=== PATIENT | male | born 1945 | race Caucasian/White ===

== ENCOUNTER 2017-01-24 15:43 | Emergency (ER) | payer MEDICARE ==
--- NOTE | 2017-01-24 16:57 | RAD ---
HISTORY: Cough COMPARISONS: April 13, 2014 VIEWS: 2: Frontal dual-energy and lateral views of the chest. FINDINGS: CARDIOMEDIASTINAL SILHOUETTE: The cardiomediastinal silhouette is normal. A prosthetic heart valve is noted CANDELARIA: The candelaria are normal. PLEURA: The costophrenic angles are sharp. No pleural abnormalities are noted. LUNG PARENCHYMA: The lungs are clear. ABDOMEN: The upper abdomen is clear. There is no subphrenic gas. BONES AND SOFT TISSUES: The patient is status post median sternotomy OTHER: None. IMPRESSION: NO ACTIVE CARDIOPULMONARY DISEASE.
[2017-01-24] MEDS ORDERED: cefTRIAXone VIAL(*) 1,000 MG VIAL IM ONE (17:23)
[2017-01-24] MEDS ORDERED: Lidocaine 1% MPF* 2 ML VIAL INJ ONE (17:26)
--- NOTE | 2017-01-24 17:35 | UC ---
Shortness of Breath HPI - HPI Summary HPI Summary: PT WITH A H/O ASTHMA AND CHRONIC BRONCHITIS. PER PT BASELINE O2 SAT IS ABOUT 90% . HAS COUGH AND NASAL CONGESTION. TODAY DEVELOPED PAIN IN HIS LEFT ABDOMEN WITH COUGHING SO CAME IN FOR EVAL. NO FEVER, N/V/D. - History of Current Complaint Chief Complaint: UCRespiratory Stated Complaint: COUGH Time Seen by Provider: 01/24/17 16:02 Hx Obtained From: Patient Onset/Duration: Gradual Onset, Lasting Days, Still Present Timing: Constant Current Severity: Moderate Dyspnea At: Rest Aggrevating Factors: Movement Alleviating Factors: Bronchodilators, Oxygen Associated Signs & Symptoms: Positive: Cough (Nonproductive), Wheezing, Nasal Congestion. Negative: Fever, Chills, Dizzy, Calf Pain/Swelling - Allergy/Home Medications Allergies/Adverse Reactions: Allergies Allergy/AdvReac Type Severity Reaction Status Date / Time NARCOTICS Allergy Severe Itching Uncoded 04/13/14 18:31 PMH/Surg Hx/FS Hx/Imm Hx Endocrine History: Diabetes Cardiovascular History: Cardiac Disease, Hypertension Respiratory History: COPD, Asthma - Surgical History Surgical History: Yes Surgery Procedure, Year, and Place: AVR, CABG, CAROTID ENDARTERECTOMY, PTCA W/ STENTS - Family History Known Family History: Positive: Hypertension, Diabetes - Social History Alcohol Use: Weekly Alcohol Amount: 1 BEER Substance Use Type: None Smoking Status (MU): Never Smoked Tobacco Review of Systems Constitutional: Negative ENT: Nasal Discharge Respiratory: Shortness Of Breath, Cough Cardiovascular: Negative Gastrointestinal: Abdominal Pain All Other Systems Reviewed And Are Negative: Yes Physical Exam Triage Information Reviewed: Yes Appearance: No Pain Distress, Well-Nourished, Obese Vital Signs: Initial Vital Signs Temp 98.5 F 01/24/17 15:55 Pulse 78 01/24/17 15:55 Resp 18 01/24/17 15:55 BP 146/84 01/24/17 15:55 Pulse Ox 87 01/24/17 15:55 Vital Signs Reviewed: Yes Eyes: Positive: Conjunctiva Clear ENT: Positive: Hearing grossly normal Neck: Positive: Supple Respiratory: Positive: Lungs clear, Normal breath sounds, Accessory muscle use Cardiovascular Exam: Normal Abdomen Description: Positive: Soft, Other: - TTP LEFT SIDE - NO REBOUND OR RIGIDITY. Negative: CVA Tenderness (R), CVA Tenderness (L) Neurological: Positive: Alert Psychological: Positive: Age Appropriate Behavior Skin: Negative: rashes Diagnostics - Radiology CXR Xray Interpretation: No Acute Changes Radiology Interpretation Completed By: Radiologist Shortness of Breath Dx - Course Course Of Treatment: RECOMMENDED TRANSFER TO ER BASED ON INCREASED WORK OF BREATHING AND LOW O2 SAT. PT DECLINES. DISCUSSED RISKS OF NOT GOING TO ER INCLUDING RESPIRATORY FAILURE AND . PT VERBALIZES UNDERSTANDING AND STILL CHOOSES TO GO AMA. STATES HE WILL GO TO THE ER TOMORROW IF HE IS NOT FEELING BETTER. - Differential Dx/Diagnosis Provider Diagnoses: BRONCHITIS WITH HYPOXIA Discharge - Discharge Plan Condition: Stable Disposition: AGAINST MEDICAL ADVICE Prescriptions: Azithromycin [Azithromycin 500 MG TAB] 500 mg PO DAILY #5 tab Referrals: Maycol Abel MD [Primary Care Provider] -
[2017-01-24 18:01] VITALS: BP 150/79
== END 2017-01-24 17:55 | disposition left against medical advice (07) ==
LOC: UCEAST 15:43
DX: J45.909 Unspecified asthma, uncomplicated (principal); Z53.20 Procedure and treatment not carried out because of patient's decision for unspecified reasons; R09.02 Hypoxemia; E11.9 Type 2 diabetes mellitus without complications; I10 Essential (primary) hypertension; I51.9 Heart disease, unspecified
CPT/HCPCS: 71020; 96372; 99213; G0463; J0696

== ENCOUNTER 2017-01-27 07:11 | Inpatient (IN) | payer MEDICARE ==
[2017-01-27] MEDS ORDERED: Albuterol/Ipratropium NEB.SOL* Albuterol 2.5 MG/Ipratropium 0.5 MG 3 ML INH ONE (07:45)
[2017-01-27] MEDS ORDERED: NS 0.9% 1000 ML* 1,000 ML IV SCH ×2 (07:45→13:00)
[2017-01-27 07:59] LABS: Hematocrit 49 % (42-52); Hemoglobin 16.1 g/dl (14.0-18.0); Mean Corpuscular HGB Conc 33 g/dl (31-36); Mean Corpuscular Hemoglobin 30 pg (27-31); Mean Corpuscular Volume 91 fL (80-94); Mean Platelet Volume 8 um3 (7.4-10.4); Red Blood Count 5.38 10^6/ul (4.0-5.4); Red Cell Distribution Width 14 % (10.5-15); White Blood Count 5.4 10^3/ul (3.5-10.8)
[2017-01-27 08:01] LABS: Urine Bilirubin Negative (Negative); Urine Glucose 1+(50 mg/dL) (Negative); Urine Nitrite Negative (Negative)
[2017-01-27 08:11] LABS: Albumin 3.9 g/dL (3.2-5.2); BUN/Creatinine Ratio 16.1 (8-20); C Reactive Protein 13.08 mg/L (< 5.00); Calcium 8.7 mg/dL (8.6-10.3); EGFR African American 65.9 (>60); EGFR Non-African American 51.2 (>60); Globulin 3.3 g/dL (2-4); Magnesium 1.8 mg/dL (1.9-2.7); Potassium 3.6 mmol/L (3.5-5.0); Total Bilirubin 0.4 mg/dL (0.2-1.0); Total Protein 7.2 g/dL (6.4-8.9)
[2017-01-27 08:12] LABS: Troponin I 0.01 ng/mL (<0.04)
[2017-01-27 08:23] LABS: TSH (Thyroid Stimulating Horm) 2.53 mcIU/mL (0.34-5.60)
[2017-01-27] MEDS ORDERED: Levofloxacin 750 MG IVPREMIX(* 750 MG/150 ML BAG IVPB ONE (09:23)
[2017-01-27] MEDS ORDERED: methylPREDNISolone 125 MG* 2 ML VIAL IV ONE (09:24)
--- NOTE | 2017-01-27 09:31 | RAD ---
Indication: Left lower chest pain. Single frontal view of the chest performed at 0820 hours was reviewed. Comparison is made with previous exam dated January 24, 2017. Cardiomegaly is noted. Likely bibasilar atelectasis is noted. Overall no changes noted since previous exam. IMPRESSION: NO ACTIVE CARDIOPULMONARY DISEASE IS NOTED. LEFT BASILAR ATELECTASIS IS LIKELY PRESENT.
[2017-01-27] MEDS ORDERED: Magnesium Sulfate 2 GM IV* 2 GM/50 ML BAG IVPB ONE (09:38)
[2017-01-27] MEDS ORDERED: Dextrose 50% Syringe 50 ML* 25 GM/50 ML SYRINGE IV PUSH PRN (13:01)
[2017-01-27] MEDS ORDERED: Acetaminophen TAB* 325 MG PO PRN (13:04)
[2017-01-27] MEDS ORDERED: Ondansetron INJ* 2 MG/ML VIAL IV PRN (13:04)
[2017-01-27] MEDS ORDERED: Albuterol HFA INHALER* 8 gm MDI INH PRN (13:06)
[2017-01-27] MEDS: guaiFENesin ER TAB 600 MG PO SCH ×2 (13:08→20:56)
[2017-01-27] MEDS: Heparin VIAL(*) 5000 UNITS/ML VIAL (FIVE THOUSAND) SUBCUT SCH ×2 (13:42→20:56)
[2017-01-27] MEDS ORDERED: ZOSYN 3.375 GM x ONE DOSE over 30 miuntes IVPB ×2 (14:00)
[2017-01-27] MEDS ORDERED: Iodixanol* (CONTRAST) 320 MG/ML 100 ML SDV IV SCH (14:09)
--- NOTE | 2017-01-27 16:38 | RAD ---
Indication: Left lower quadrant pain, fever. Contrast: Administered 133.8 ml of VISAPAQUE 320 mgi/ml CT of the abdomen and pelvis was performed after oral and IV contrast administration. Coronal and sagittal reconstructed images were obtained. The lung bases demonstrate some dependent changes with some scarring in the lingula. The heart demonstrates no pericardial effusion. Liver is normal in size. There is a low density lesion in the anterior medial segment of the left lobe of liver likely representing a small cyst measuring up to 11 mm. No other focal lesions or intrahepatic ductal dilatation is noted. The gallbladder demonstrates no calcified gallstones. Common duct is not dilated. The pancreas demonstrates no mass or pancreatic ductal dilatation. The spleen is normal in size. No adrenal lesions are noted. The kidneys demonstrate symmetric nephrograms without evidence of hydronephrosis or masses. Atherosclerotic aorta is noted. Abdominal aortic aneurysm just inferior to the abdominal aorta is noted measuring 3.8 cm in length x 3.4 cm AP x 3.0 cm in greatest width with peripheral thrombus. Common iliac arteries are patent. Inferior vena cava is unremarkable. No retroperitoneal or pelvic lymphadenopathy is noted. CT of the pelvis demonstrates prostate to be unremarkable. No hernias are noted. There are no dilated loops of small small bowel. Urinary bladder is unremarkable. Diverticulosis without definite evidence of diverticulitis is noted. No free fluid is identified. Degenerative changes of the lumbar spine with grade 1 spondylolisthesis of L5 on S1 noted. IMPRESSION: Probable hepatic cyst. Infrarenal abdominal aortic aneurysm. This measures 3.4 cm in greatest AP dimension. Diverticulosis without definite evidence of diverticulitis.
[2017-01-27] MEDS: Insulin LISPRO* 1 UNITS UNIT SUBCUT SCH (17:10)
[2017-01-27] MEDS: Atorvastatin* 80 MG TAB PO SCH (17:10)
--- NOTE | 2017-01-27 18:31 | ED ---
Ladan Jones Rebecca, scribed for Harrison Harding MD on 01/27/17 at 0748 . HPI Chest Pain - HPI Summary HPI Summary: Pt is a 71 y/o M who presents to ED c/o CP. Pain began on Thursday (3 days ago) and has been intermittent since onset, worsening this morning at 0300. Pain is in the L anterior region without radiation. Pain is currently severe, ranked 8/ 10. Sx aggravated by deep breaths and movement, alleviated by nothing. Additionally c/o SOB, productive cough and L-sided abd pain described as "there is a lump in my belly but I think it is fluid." Denies fever. PMHx CHF for which he takes diuretic pills when he notices his edema is worsening. Pt was evaluated 3 days ago by [facility] during which he reports his O2 sat was 88 and that he was advised to come [place] [facility], which he refused. He had a Dx of Bronchitis for which the pt reports sx were improving until early this morning. - History of Current Complaint Chief Complaint: EDShortnessOfBreath Time Seen by Provider: 01/27/17 07:31 Hx Obtained From: Patient Onset/Duration: Started Days Ago - 3 days ago, Still Present Timing: Intermittent Current Severity: Severe Pain Intensity: 8 Pain Scale Used: 0-10 Numeric Chest Pain Location: Left Anterior Chest Pain Radiates: No Aggravating Factor(s): Movement, Deep Breaths Alleviating Factor(s): Nothing Associated Signs and Symptoms: Positive: Shortness of Breath, Productive Cough, Abdominal Pain - L-sided. Negative: Fever - Allergy/Home Medications Allergies/Adverse Reactions: Allergies Allergy/AdvReac Type Severity Reaction Status Date / Time NARCOTICS Allergy Severe Itching Uncoded 01/27/17 07:35 Home Medications: Home Medications Albuterol HFA INHALER* [Ventolin HFA Inhaler*] 2 puff INH Q6H PRN 01/27/17 [ History Confirmed 01/27/17] Atorvastatin* [Lipitor*] 80 mg PO 1700 01/27/17 [History Confirmed 01/27/17] Metformin ER (NF) [Glucophage ER 750 MG TAB (NF)] 1,500 mg PO BEDTIME 01/27/17 [ History Confirmed 01/27/17] Metformin ER (NF) [Glucophage ER 750 MG TAB (NF)] 750 mg PO DAILY 01/27/17 [ History Confirmed 01/27/17] Metoprolol Succinate [Toprol Xl] 100 mg PO DAILY 01/27/17 [History Confirmed 11/10] Omeprazole CAP* [Prilosec CAP* 20 MG] 20 mg PO DAILY 01/27/17 [History Confirmed 01/27/17] Spironolactone TAB* [Aldactone TAB*] 50 mg PO DAILY 01/27/17 [History Confirmed 01/27/17] Terazosin CAP* [Hytrin CAP*] 5 mg PO BEDTIME 01/27/17 [History Confirmed ] glipiZIDE TAB.XL* [Glucotrol XL*] 5 mg PO DAILY 01/27/17 [History Confirmed 11/10] PMH/Surg Hx/FS Hx/Imm Hx Endocrine/Hematology History: Reports: Hx Diabetes Cardiovascular History: Reports: Hx Congestive Heart Failure, Hx Hypertension, Other Cardiovascular Problems/Disorders - AORTIC VALVE REPLACEMENT- HX STROKE Respiratory History: Reports: Hx Asthma Neurological History: Reports: Hx CVA - Surgical History Surgery Procedure, Year, and Place: AVR, CABG, CAROTID ENDARTERECTOMY, PTCA W/ STENTS Infectious Disease History: No Infectious Disease History: Reports: Hx Shingles Denies: Traveled Outside the [place] in Last 30 Days - Family History Known Family History: Positive: Hypertension, Diabetes - Social History Alcohol Use: Weekly Alcohol Amount: 1 BEER Substance Use Type: Reports: None Smoking Status (MU): Never Smoked Tobacco Review of Systems Negative: Fever Positive: Chest Pain Positive: Shortness Of Breath, Cough - productive Positive: Abdominal Pain - L-sided All Other Systems Reviewed And Are Negative: Yes Physical Exam Triage Information Reviewed: Yes Vital Signs On Initial Exam: Initial Vitals Temp Pulse Resp BP Pulse Ox 97.8 F 78 17 171/93 90 01/27/17 07:12 01/27/17 07:12 01/27/17 07:12 01/27/17 07:12 01/27/17 07:12 Vital Signs Reviewed: Yes Appearance: Positive: Well-Appearing, Pain Distress - Mild Skin: Positive: Warm, Skin Color Reflects Adequate Perfusion, Dry Head/Face: Positive: Normal Head/Face Inspection Eyes: Positive: EOMI, PATRICK ENT: Positive: Normal ENT inspection Neck: Positive: Supple, Nontender Respiratory/Lung Sounds: Positive: Rales - In the bases, Wheezes - Bilaterally, Other - Mild repsiratory distress Cardiovascular: Positive: RRR Abdomen Description: Positive: Nontender, Soft Bowel Sounds: Positive: Present Musculoskeletal: Positive: Strength/ROM Intact, Other - Bilateral pedal edema Neurological: Positive: Normal, Sensory/Motor Intact, Alert, Oriented to Person Place, Time Psychiatric: Positive: Affect/Mood Appropriate - Lena Coma Scale Coma Scale Total: 15 Diagnostics - Vital Signs Vital Signs Temp Pulse Resp BP Pulse Ox 01/27/17 07:30 74 16 138/78 88 01/27/17 07:24 76 20 163/82 87 01/27/17 07:21 76 18 89 01/27/17 07:12 97.8 F 78 17 171/93 90 - Laboratory Lab Results: Lab Results 01/27/17 01/27/17 01/27/17 Range/Units 07:20 07:20 07:20 WBC 5.4 (3.5-10.8) 10^3/ul RBC 5.38 (4.0-5.4) 10^6/ul Hgb 16.1 (14.0-18.0) g/dl Hct 49 (42-52) % MCV 91 (80-94) fL MCH 30 (27-31) pg MCHC 33 (31-36) g/dl RDW 14 (10.5-15) % Plt Count 260 (150-450) 10^3/ul MPV 8 (7.4-10.4) um3 Neut % (Auto) 67.5 (38-83) % Lymph % (Auto) 16.8 L (25-47) % Mcminn % (Auto) 10.2 H (1-9) % Eos % (Auto) 4.7 (0-6) % Baso % (Auto) 0.8 (0-2) % Absolute Neuts (auto) 3.7 (1.5-7.7) 10^3/ul Absolute Lymphs (auto) 0.9 L (1.0-4.8) 10^3/ul Absolute Monos (auto) 0.6 (0-0.8) 10^3/ul Absolute Eos (auto) 0.3 (0-0.6) 10^3/ul Absolute Basos (auto) 0 (0-0.2) 10^3/ul Absolute Nucleated RBC 0.02 10^3/ul Nucleated RBC % 0.3 INR (Anticoag Therapy) 0.84 L (0.89-1.11) APTT 31.8 (26.0-36.3) seconds D-Dimer, Quantitative < 200 (Less Than 230) ng/mL Sodium (133-145) mmol/L Potassium (3.5-5.0) mmol/L Chloride (101-111) mmol/L Carbon Dioxide (22-32) mmol/L Anion Gap (2-11) mmol/L BUN (6-24) mg/dL Creatinine (0.67-1.17) mg/dL Est GFR ( Amer) (>60) Est GFR (Non-Af Amer) (>60) BUN/Creatinine Ratio (8-20) Glucose (70-100) mg/dL Hemoglobin A1c (Less than 6.0) % Lactic Acid (0.5-2.0) mmol/L Calcium (8.6-10.3) mg/dL Magnesium (1.9-2.7) mg/dL Total Bilirubin (0.2-1.0) mg/dL AST (13-39) U/L ALT (7-52) U/L Alkaline Phosphatase (34-104) U/L Total Creatine Kinase (10-223) U/L CK-MB (CK-2) (0.6-6.3) ng/mL Troponin I (<0.04) ng/mL C-Reactive Protein (< 5.00) mg/L B-Natriuretic Peptide ( - 100) pg/mL Total Protein (6.4-8.9) g/dL Albumin (3.2-5.2) g/dL Globulin (2-4) g/dL Albumin/Globulin Ratio (1-3) Lipase (11.0-82.0) U/L TSH (0.34-5.60) mcIU/mL Urine Color Colorless Urine Appearance Clear Urine pH 5.0 (5-9) Ur Specific [place] 1.006 L (1.010-1.030) Urine Protein Negative (Negative) Urine Ketones Negative (Negative) Urine Blood Negative (Negative) Urine Nitrate Negative (Negative) Urine Bilirubin Negative (Negative) Urine Urobilinogen Negative (Negative) Ur Leukocyte Esterase Negative (Negative) Urine Glucose 1+(50 mg/dl) H (Negative) 01/27/17 01/27/17 01/27/17 Range/Units 07:20 07:20 07:20 WBC (3.5-10.8) 10^3/ul RBC (4.0-5.4) 10^6/ul Hgb (14.0-18.0) g/dl Hct (42-52) % MCV (80-94) fL MCH (27-31) pg MCHC (31-36) g/dl RDW (10.5-15) % Plt Count (150-450) 10^3/ul MPV (7.4-10.4) um3 Neut % (Auto) (38-83) % Lymph % (Auto) (25-47) % Mcminn % (Auto) (1-9) % Eos % (Auto) (0-6) % Baso % (Auto) (0-2) % Absolute Neuts (auto) (1.5-7.7) 10^3/ul Absolute Lymphs (auto) (1.0-4.8) 10^3/ul Absolute Monos (auto) (0-0.8) 10^3/ul Absolute Eos (auto) (0-0.6) 10^3/ul Absolute Basos (auto) (0-0.2) 10^3/ul Absolute Nucleated RBC 10^3/ul Nucleated RBC % INR (Anticoag Therapy) (0.89-1.11) APTT (26.0-36.3) seconds D-Dimer, Quantitative (Less Than 230) ng/mL Sodium 137 (133-145) mmol/L Potassium 3.6 (3.5-5.0) mmol/L Chloride 99 L (101-111) mmol/L Carbon Dioxide 34 H (22-32) mmol/L Anion Gap 4 (2-11) mmol/L BUN 22 (6-24) mg/dL Creatinine 1.37 H (0.67-1.17) mg/dL Est GFR ( Amer) 65.9 (>60) Est GFR (Non-Af Amer) 51.2 (>60) BUN/Creatinine Ratio 16.1 (8-20) Glucose 237 H (70-100) mg/dL Hemoglobin A1c (Less than 6.0) % Lactic Acid 0.8 (0.5-2.0) mmol/L Calcium 8.7 (8.6-10.3) mg/dL Magnesium 1.8 L (1.9-2.7) mg/dL Total Bilirubin 0.40 (0.2-1.0) mg/dL AST 21 (13-39) U/L ALT 17 (7-52) U/L Alkaline Phosphatase 117 H (34-104) U/L Total Creatine Kinase 187 (10-223) U/L CK-MB (CK-2) 3.8 (0.6-6.3) ng/mL Troponin I 0.01 (<0.04) ng/mL C-Reactive Protein 13.08 H (< 5.00) mg/L B-Natriuretic Peptide 39 ( - 100) pg/mL Total Protein 7.2 (6.4-8.9) g/dL Albumin 3.9 (3.2-5.2) g/dL Globulin 3.3 (2-4) g/dL Albumin/Globulin Ratio 1.2 (1-3) Lipase 36 (11.0-82.0) U/L TSH 2.53 (0.34-5.60) mcIU/mL Urine Color Urine Appearance Urine pH (5-9) Ur Specific [place] (1.010-1.030) Urine Protein (Negative) Urine Ketones (Negative) Urine Blood (Negative) Urine Nitrate (Negative) Urine Bilirubin (Negative) Urine Urobilinogen (Negative) Ur Leukocyte Esterase (Negative) Urine Glucose (Negative) 01/27/17 Range/Units 07:20 WBC (3.5-10.8) 10^3/ul RBC (4.0-5.4) 10^6/ul Hgb (14.0-18.0) g/dl Hct (42-52) % MCV (80-94) fL MCH (27-31) pg MCHC (31-36) g/dl RDW (10.5-15) % Plt Count (150-450) 10^3/ul MPV (7.4-10.4) um3 Neut % (Auto) (38-83) % Lymph % (Auto) (25-47) % Mcminn % (Auto) (1-9) % Eos % (Auto) (0-6) % Baso % (Auto) (0-2) % Absolute Neuts (auto) (1.5-7.7) 10^3/ul Absolute Lymphs (auto) (1.0-4.8) 10^3/ul Absolute Monos (auto) (0-0.8) 10^3/ul Absolute Eos (auto) (0-0.6) 10^3/ul Absolute Basos (auto) (0-0.2) 10^3/ul Absolute Nucleated RBC 10^3/ul Nucleated RBC % INR (Anticoag Therapy) (0.89-1.11) APTT (26.0-36.3) seconds D-Dimer, Quantitative (Less Than 230) ng/mL Sodium (133-145) mmol/L Potassium (3.5-5.0) mmol/L Chloride (101-111) mmol/L Carbon Dioxide (22-32) mmol/L Anion Gap (2-11) mmol/L BUN (6-24) mg/dL Creatinine (0.67-1.17) mg/dL Est GFR ( Amer) (>60) Est GFR (Non-Af Amer) (>60) BUN/Creatinine Ratio (8-20) Glucose (70-100) mg/dL Hemoglobin A1c 7.8 H (Less than 6.0) % Lactic Acid (0.5-2.0) mmol/L Calcium (8.6-10.3) mg/dL Magnesium (1.9-2.7) mg/dL Total Bilirubin (0.2-1.0) mg/dL AST (13-39) U/L ALT (7-52) U/L Alkaline Phosphatase (34-104) U/L Total Creatine Kinase (10-223) U/L CK-MB (CK-2) (0.6-6.3) ng/mL Troponin I (<0.04) ng/mL C-Reactive Protein (< 5.00) mg/L B-Natriuretic Peptide ( - 100) pg/mL Total Protein (6.4-8.9) g/dL Albumin (3.2-5.2) g/dL Globulin (2-4) g/dL Albumin/Globulin Ratio (1-3) Lipase (11.0-82.0) U/L TSH (0.34-5.60) mcIU/mL Urine Color Urine Appearance Urine pH (5-9) Ur Specific [place] (1.010-1.030) Urine Protein (Negative) Urine Ketones (Negative) Urine Blood (Negative) Urine Nitrate (Negative) Urine Bilirubin (Negative) Urine Urobilinogen (Negative) Ur Leukocyte Esterase (Negative) Urine Glucose (Negative) Result Diagrams: 01/27/17 07:20 01/27/17 07:20 Lab Statement: Any lab studies that have been ordered have been reviewed, and results considered in the medical decision making process. - Radiology CXR Xray Interpretation: Positive (See Comments) - NO ACTIVE CARDIOPULMONARY DISEASE IS NOTED. LEFT BASILAR ATELECTASIS IS LIKELY PRESENT. Radiology Interpretation Completed By: Radiologist - EKG 0728 Cardiac Rate: NL - 77 bpm EKG Rhythm: Sinus Rhythm Ectopy: None EKG Interpretation: Borderline T abnormalities, inferior leads Re-Evaluation - Re-Evaluation First Eval Re-Evaluation Time: 09:25 Change: Improved Comment: Pt is doing slightly better. Discussed admission and Dx with the pt. Chest Pain Course/Dx - Course Assessment/Plan: Pt is a 71 y/o M who presents to ED c/o severe L anterior CP for 3 days, worse this morning at 0300. Sx aggravated by deep breaths and movement. Additionally c/o SOB, productive cough and L-sided abd pain described as "there is a lump in my belly but I think it is fluid." Denies fever. PMHx CHF for which he takes diuretic pills when necessary. Pt was evaluated 3 days ago by [facility] during which he reports his O2 sat was 88 and that he was advised to come [place] [facility], which he refused. He had a Dx of Bronchitis for which the pt reports sx were improving until early this morning. NO CRITICAL CARE TIME. ADMIT HOSPITALIST STABLE. - Diagnoses Provider Diagnoses: Chest pain, Pneumonia, Hypoxia - Provider Notifications Discussed Care Of Patient With: Jasper Padilla Time Discussed With Above Provider: 09:22 Instructed by Provider To: Other - Accepts pt for admission Discharge - Discharge Plan Condition: Stable Disposition: ADMITTED TO [facility] The documentation as recorded by the Ladan powers Rebecca accurately reflects the service I personally performed and the decisions made by me, Harrison Harding MD.
[2017-01-27] MEDS: Terazosin CAP* 5 MG PO SCH (20:56)
--- NOTE | 2017-01-27 21:35 | HP ---
CC: Maycol Abel MD * MEDICINE HISTORY AND PHYSICAL: DATE OF ADMISSION: 01/27/17 PROVIDER: Cheri Goldstein NP ATTENDING PHYSICIAN: Nain Padilla MD *(as dictated by Cheri Goldstein NP). PRIMARY CARE PROVIDER: Maycol Abel MD CHIEF COMPLAINT: Chest pain. HISTORY OF PRESENT ILLNESS: Mr. Perkins is a 71-year-old male, who presented to the ER with complaints of chest pain. The patient states that the pain began on Thursday but was first noted in the left lower abdomen approximately 3 days ago and then has been intermittent since then. He did present to the urgent care at that time and there was concern for perhaps an acute bronchitis. At that time, the patient was referred to the ER for further evaluation, which he declined. He was given a prescription for azithromycin x5 days, which he did take and states that it did help him. He started to feel better. Yesterday, he noted he was concerned that he was not on enough antibiotics. He states that he ate wings last evening, went to sleep and then woke up around 3 a.m. with worsening pain that now radiated up to his left anterior chest. The pain is aggravated by taking deep breath and with movement. He describes associated symptoms of worsening edema to his lower extremities. He reports not being able to sleep flat because of the pain, stating that the pain moved from his left abdomen and into to his left chest. He also reports last Thursday, he saw his PCP and shortly thereafter he had a sore throat that presented through Thursday, when he started to present with the abdominal and chest pain. He attributes all these symptoms to pneumonia, which he states "I get every year." The patient also describes a lump in his belly that he calls fluid. When asked about his medical history, the patient is very tangential and states a lot of times that he "doesn't believe what they say about these diseases." He states he has been told he has COPD, but does not believe it and reports having chronic bronchitis and asthma as well as yearly pneumonia. Of note, the patient does travel frequently between here and [place]. His is currently residing in [place], he came up here to get his car inspected before returning back to [place]. He has no primary care provider down in [place], but does have one here locally. In the ER, the patient's CBC was benign. He does have elevated monocytes as well as a mildly elevated creatinine, elevated glucose, magnesium of 1.8, and a CRP of 13. PAST MEDICAL HISTORY: 1. Suspected COPD, although the patient denies. He does report history of asthma and chronic bronchitis with a baseline O2 sat of 90%. 2. Type 2 diabetes. 3. Coronary artery disease. The patient states that he has had stents placed "many years ago." 4. History of aortic valve replacement. 5. History of CVA "around 2014" 6. History of carotid artery endarterectomy approximately 2 years ago. 7. CHF. 8. GERD. 9. Peripheral vascular disease. 10. Obstructive sleep apnea. The patient does not wear CPAP. 11. Hypertension. 12. Hyperlipidemia. HOME MEDICATIONS: 1. Lotrel 10/20 one capsule daily. 2. Spironolactone 50 mg daily. 3. Albuterol inhaler 2 puffs inhaled q.6 hours p.r.n. 4. Metformin 750 mg daily and 1500 mg at bedtime. 5. Omeprazole 20 mg daily. 6. Glipizide 5 mg daily. 7. Atorvastatin 80 mg at 1700. 8. Terazosin 5 mg at bedtime. 9. Toprol-XL 100 mg daily. ALLERGIES: No known drug allergies. FAMILY HISTORY: He reports heart disease in both his mother and father and a history of breast cancer in an aunt. SOCIAL HISTORY: The patient states he is a former smoker. He reports 1 bottle of beer that he drinks on most days. He denies any drug use. He is retired. 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 He is . His is currently in [place]. He does have a daughter here locally, who he names as his healthcare proxy at this time, her name is Lisa Perkins. REVIEW OF SYSTEMS: Constitutional: The patient denies any fevers, chills, changes in appetite. CV: He reports left-sided chest pain that is not radiating. He reports chronic lower extremity edema. He denies any palpitations, dizziness, syncopal episodes. Resp: He reports a non-productive cough and dyspnea. He does not utilize chronic O2. He denies any hemoptysis. GI: He reports constipation recently and a few episodes of diarrhea yesterday. He denies any nausea or vomiting, but does report left lower quadrant abdominal pain. : He denies any dysuria, but does state that he has urinary hesitancy and frequency, but denies hematuria. Neuro: He denies any focal weakness, sensory loss or changes to speech. ENT: He denies any new changes with vision, hearing or swallowing ability. Musculoskeletal: He denies any new joint pains or muscle pains. Skin: He reports chronic ulcerations to the bilateral lower extremities that have healed and history of peripheral vascular disease. Psych: He denies any anxiety or depression. PHYSICAL EXAMINATION GENERAL: Mr. Perkins is a 71-year-old male patient who is sitting up in his chair, in no acute distress. VITAL SIGNS: Temperature 97.8, heart rate 72, respiratory rate 20, blood pressure 132/67, and O2 saturation 92% on room air. HEENT: Head is atraumatic, normocephalic. Face is symmetrical. Pupils are equal, round, and reactive to light. Extraocular movements are intact. Oral mucosa appears moist. No oropharyngeal erythema. NECK: Supple. No lymphadenopathy appreciated. RESPIRATORY: Lungs are clear to auscultation. Breath sounds diminished in the bases, more on the left than the right. No wheezes appreciated. CARDIAC: S1, S2 heart sounds. Regular rate and rhythm. There is a slight systolic ejection murmur, best heard on the right upper sternal border. The patient has 2+ peripheral edema that is pitting, 2+ distal pulses. ABDOMEN: Obese, and soft. There is tenderness in the left lower quadrant with palpation. Bowel sounds present times all 4 quadrants. MUSCULOSKELETAL: There is no clubbing or cyanosis. The patient has full range of motion. 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 NEUROLOGIC: The patient moves all extremities. No focal deficits noted. Sensation is intact to light touch to the lower extremities. PSYCH: He is alert and oriented x3. The patient is tangential with a relatively poor insight, but otherwise cooperative with assessment and exam. LABORATORY DATA AND DIAGNOSTIC STUDIES: Chest x-ray shows no active cardiopulmonary disease. Left basal atelectasis is likely present. EKG shows sinus rhythm with some T-wave flattening in leads 2 and 3. No significant changes from previous EKG on record. Laboratory testing: CBC: WBC 5.4, hemoglobin 16.1, hematocrit 49, platelet count 260,000. D-dimer less than 200. CMP: Sodium 137, potassium 3.6, chloride 99, carbon dioxide 34, BUN 22, creatinine 1.37, glucose 237, lactic acid 0.8, magnesium 1.8, AST 21, ALT 17, alk phos 117, total CK 187, troponin 0.01, CRP 13.08, BNP 39, albumin 3.9, TSH 2.53. Urinalysis is negative for any nitrites or leukocyte esterase. ASSESSMENT AND PLAN: Mr. Perkins is a 71-year-old male who presents today with concern for chest pain and left lower abdominal pain. He is admitted under observation status. Plan is as follows: 1. Shortness of breath: Suspect a mild chronic obstructive pulmonary disease exacerbation. The patient was recently treated with azithromycin as an outpatient . His CXR indicates there may be a formulation of an infiltrate in the left lower lobe that is read as atelectasis. He is afebrile. His labs are benign and I do suspect that he may have some viral illness given his respiratory distress, but given the patient's initial presentation with respiratory distress with wheezing, which I do not now appreciate, we will continue him on antibiotics for suspected developing pneumonia as well as nebulizer treatments p.r.n. He is currently using 2 L of oxygen, which he does not use at home. We will try to wean this as soon as possible for the patient and continue to monitor. 2. Chest pain: The patient's pain is not radiating or reproducible. The patient's initial trop was negative, but the EKG shows no ischemic changes. The pain is not reproducible. We will continue to trend his troponins. He does have a history significant for heart disease; however, the patient's pain appears to be more consistent with a muscle pain or perhaps a radiating pain from an abdominal source than it does cardiac, as the patient can elicit the pain by moving in certain directions. He does not describe the pain as typical with activity or exertion, but rather if he bends over, it shoots up to his chest. Given that the patient reports eating wings last evening and lying flat and having this pain that may represent some kind of GI component. He does report a history of reflux and he currently takes omeprazole for this which we will continue. There is also concern for the patient's severe left abdominal pain that we will also evaluate while he is here. Certainly, if the pain continues or troponins elevate, we will pursue a cardiac evaluation. 3. Left lower quadrant abdominal pain: This may represent a diverticulitis, infection or some other inflammation of the bowel. Though the patient's lactic acid is normal, his CRP is only minimally elevated; however, he does have exquisite pain when his abdomen is lightly palpated within that region and apparently, the pain radiates up through his chest from time to time. I will check his CT of his abdomen to better evaluate his pain. I have switched the patient to Zosyn to cover any particular potential lung disease as well as concern for developing a diverticulitis. This can be narrowed down once the testing returns. 4. Elevated creatinine and acute kidney injury: The patient may have some acute- on-chronic process here. In fact, he may have an element of chronic renal dysfunction. We requested the records from the patient's PCP's office to better establish the patient's baseline, continue to trend and follow. 5. Type 2 diabetes: I will add an A1c. The patient's random glucose is 235 and I am not sure when he last ate and how accurate this is. We will hold his home metformin and glipizide and continue him on lispro sliding scale insulin. 6. History of coronary artery disease: Continue home statin. Continue beta- ama. 7. History of hypertension: Continue amlodipine, but hold the patient's benazepril portion of his Lotrel as he does have a mildly elevated creatinine. Continue to follow. 8. History of congestive heart failure: Continue spironolactone. The patient is on daily weights and I's and O's, he appears to be within his baseline, which he does state his baseline weight is 230 and here it is mentioned about 236. I do not appreciate any crackles. I do not feel the patient is fluid overloaded at this time, but we will continue to carefully monitor this. 9. History of gastroesophageal reflux disease: Continue omeprazole. 10. FEN. The patient is ordered consistent carbohydrate diet. 11. DVT prophylaxis. He is ordered subcu heparin. 12. Code status. He is a full code. TIME SPENT: Time spent on this admission was approximately 70 minutes, more than half that time was spent [id number] with the patient obtaining history and physical, performing the physical examination, and reviewing the plan of care. Plan of care was also reviewed with my attending, Dr. Padilla, who is in agreement. CHERI GOLDSTEIN NP [id number]/CPS #: [id number] KITTY
[2017-01-28] MEDS ORDERED: traMADol TAB* 50 MG PO PRN (00:12)
[2017-01-28 05:30] LABS: Hematocrit 47 % (42-52); Hemoglobin 15.4 g/dl (14.0-18.0); Mean Corpuscular HGB Conc 33 g/dl (31-36); Mean Corpuscular Hemoglobin 30 pg (27-31); Mean Corpuscular Volume 90 fL (80-94); Mean Platelet Volume 9 um3 (7.4-10.4); Red Blood Count 5.14 10^6/ul (4.0-5.4); Red Cell Distribution Width 14 % (10.5-15); White Blood Count 6.4 10^3/ul (3.5-10.8)
[2017-01-28 05:35] LABS: BUN/Creatinine Ratio 18.8 (8-20); Calcium 8.5 mg/dL (8.6-10.3); EGFR Non-African American 61.5 (>60); Potassium 4.1 mmol/L (3.5-5.0)
[2017-01-28] MEDS: Heparin VIAL(*) 5000 UNITS/ML VIAL (FIVE THOUSAND) SUBCUT SCH ×3 (06:13→21:03)
[2017-01-28] MEDS: Albuterol 2.5 MG/3 ML NEB.SOL* (0.083%) INH PRN ×2 (08:47→23:52)
[2017-01-28] MEDS: Insulin LISPRO* 1 UNITS UNIT SUBCUT SCH ×3 (10:23→18:02)
--- NOTE | 2017-01-28 10:23 | PN ---
Subjective Date of Service: 01/28/17 Interval History: C/O L lower rib pain, inhibits his coughing. Objective Active Medications: Albuterol (Ventolin 2.5 Mg/3 Ml Neb.Dayan*) 2.5 mg INH Q2H PRN PRN Reason: SOB/WHEEZING Last Admin: 01/28/17 08:47 Dose: 2.5 mg Albuterol (Ventolin Hfa Inhaler*) 2 puff INH Q6H PRN PRN Reason: WHEEZING Last Admin: 01/27/17 20:14 Dose: 2 puff Amlodipine Besylate (Norvasc Tab*) 10 mg PO DAILY [facility] Atorvastatin Calcium (Lipitor*) 80 mg PO 1700 [facility] Last Admin: 01/27/17 17:10 Dose: 80 mg Dextrose (D50w Syringe 50 Ml*) 12.5 gm IV PUSH .FOR FS < 60 - SS PRN PRN Reason: FS < 60 Glipizide (Glucotrol Xl*) 5 mg PO DAILY [facility] Guaifenesin (Mucinex*) 1,200 mg PO BID [facility] Last Admin: 01/27/17 20:56 Dose: 1,200 mg Heparin Sodium (Porcine) (Heparin Vial(*)) 5,000 units SUBCUT Q8HR [facility] Last Admin: 01/28/17 06:13 Dose: 5,000 units Piperacillin Sod/Tazobactam (Sod 3.375 gm/ Sodium Chloride) 100 mls @ 25 mls/ hr IVPB Q8H [facility] Last Admin: 01/28/17 02:14 Dose: 25 mls/hr Insulin Human Lispro (Humalog*) 0 units SUBCUT AC [facility] PRN Reason: Protocol Last Admin: 01/27/17 17:10 Dose: 12 unit Iodixanol (Visipaque* 320 (Contrast)) 134 ml IV ONCE [facility] Stop: 01/29/17 14:08 Last Admin: 01/27/17 15:58 Dose: 134 ml Metoprolol Succinate (Toprol Xl Tab*) 100 mg PO DAILY [facility] Omeprazole (Prilosec Cap*) 20 mg PO DAILY [facility] Ondansetron HCl (Zofran Inj*) 4 mg IV Q6H PRN PRN Reason: NAUSEA Spironolactone (Aldactone Tab*) 50 mg PO DAILY [facility] Terazosin HCl (Hytrin Cap*) 5 mg PO BEDTIME [facility] Last Admin: 01/27/17 20:56 Dose: 5 mg Tramadol HCl (Ultram*) 50 mg PO Q6H PRN PRN Reason: PAIN Vital Signs 01/27/17 01/27/17 01/27/17 10:20 20:13 20:24 Temperature 98.6 F 98.0 F Pulse Rate 72 77 77 Respiratory 20 18 20 Rate Blood Pressure 132/67 151/65 (mmHg) O2 Sat by Pulse 91 93 93 Oximetry 01/27/17 01/28/17 01/28/17 23:32 08:09 08:50 Temperature 97.5 F 97.6 F Pulse Rate 69 73 75 Respiratory 16 22 16 Rate Blood Pressure 154/75 173/83 (mmHg) O2 Sat by Pulse 91 89 93 Oximetry 01/28/17 08:51 Temperature Pulse Rate Respiratory Rate Blood Pressure (mmHg) O2 Sat by Pulse 93 Oximetry Oxygen Devices in Use Now: Nasal Cannula Appearance: Alert, in a chair. Somewhat angry, otherwise looks comfortable. Eyes: No Scleral Icterus Neck: NL Appearance and Movements; NL JVP, No Thyroid Enlargement, Masses Respiratory: Symmetrical Chest Expansion and Respiratory Effort, Clear to Auscultation, Clear to Percussion, - - marked tenderness L lower ribs Cardiovascular: NL Sounds; No Murmurs; No JVD, RRR, No Edema, - Abdominal: NL Sounds; No Tenderness; No Distention, No Hepatosplenomegaly, - - obese Extremities: No Edema, No Clubbing, Cyanosis, - Skin: No Rash or Ulcers, No Nodules or Sclerosis, - Neurological: Alert and Oriented x 3, NL Sensation Result Diagrams: 01/28/17 04:55 01/28/17 04:55 Additional Lab and Data: Lab Results 01/27/17 01/27/17 01/27/17 Range/Units 07:20 07:20 07:20 WBC 5.4 (3.5-10.8) 10^3/ul RBC 5.38 (4.0-5.4) 10^6/ul Hgb 16.1 (14.0-18.0) g/dl Hct 49 (42-52) % MCV 91 (80-94) fL MCH 30 (27-31) pg MCHC 33 (31-36) g/dl RDW 14 (10.5-15) % Plt Count 260 (150-450) 10^3/ul MPV 8 (7.4-10.4) um3 Neut % (Auto) 67.5 (38-83) % Lymph % (Auto) 16.8 L (25-47) % Butler % (Auto) 10.2 H (1-9) % Eos % (Auto) 4.7 (0-6) % Baso % (Auto) 0.8 (0-2) % Absolute Neuts (auto) 3.7 (1.5-7.7) 10^3/ul Absolute Lymphs (auto) 0.9 L (1.0-4.8) 10^3/ul Absolute Monos (auto) 0.6 (0-0.8) 10^3/ul Absolute Eos (auto) 0.3 (0-0.6) 10^3/ul Absolute Basos (auto) 0 (0-0.2) 10^3/ul Absolute Nucleated RBC 0.02 10^3/ul Nucleated RBC % 0.3 INR (Anticoag Therapy) 0.84 L (0.89-1.11) APTT 31.8 (26.0-36.3) seconds D-Dimer, Quantitative < 200 (Less Than 230) ng/mL Sodium (133-145) mmol/L Potassium (3.5-5.0) mmol/L Chloride (101-111) mmol/L Carbon Dioxide (22-32) mmol/L Anion Gap (2-11) mmol/L BUN (6-24) mg/dL Creatinine (0.67-1.17) mg/dL Est GFR ( Amer) (>60) Est GFR (Non-Af Amer) (>60) BUN/Creatinine Ratio (8-20) Glucose (70-100) mg/dL Hemoglobin A1c (Less than 6.0) % Lactic Acid (0.5-2.0) mmol/L Calcium (8.6-10.3) mg/dL Magnesium (1.9-2.7) mg/dL Total Bilirubin (0.2-1.0) mg/dL AST (13-39) U/L ALT (7-52) U/L Alkaline Phosphatase (34-104) U/L Total Creatine Kinase (10-223) U/L CK-MB (CK-2) (0.6-6.3) ng/mL Troponin I (<0.04) ng/mL C-Reactive Protein (< 5.00) mg/L B-Natriuretic Peptide ( - 100) pg/mL Total Protein (6.4-8.9) g/dL Albumin (3.2-5.2) g/dL Globulin (2-4) g/dL Albumin/Globulin Ratio (1-3) Lipase (11.0-82.0) U/L TSH (0.34-5.60) mcIU/mL Urine Color Colorless Urine Appearance Clear Urine pH 5.0 (5-9) Ur Specific Leland 1.006 L (1.010-1.030) Urine Protein Negative (Negative) Urine Ketones Negative (Negative) Urine Blood Negative (Negative) Urine Nitrate Negative (Negative) Urine Bilirubin Negative (Negative) Urine Urobilinogen Negative (Negative) Ur Leukocyte Esterase Negative (Negative) Urine Glucose 1+(50 mg/dl) H (Negative) 01/27/17 01/27/17 01/27/17 Range/Units 07:20 07:20 07:20 WBC (3.5-10.8) 10^3/ul RBC (4.0-5.4) 10^6/ul Hgb (14.0-18.0) g/dl Hct (42-52) % MCV (80-94) fL MCH (27-31) pg MCHC (31-36) g/dl RDW (10.5-15) % Plt Count (150-450) 10^3/ul MPV (7.4-10.4) um3 Neut % (Auto) (38-83) % Lymph % (Auto) (25-47) % Butler % (Auto) (1-9) % Eos % (Auto) (0-6) % Baso % (Auto) (0-2) % Absolute Neuts (auto) (1.5-7.7) 10^3/ul Absolute Lymphs (auto) (1.0-4.8) 10^3/ul Absolute Monos (auto) (0-0.8) 10^3/ul Absolute Eos (auto) (0-0.6) 10^3/ul Absolute Basos (auto) (0-0.2) 10^3/ul Absolute Nucleated RBC 10^3/ul Nucleated RBC % INR (Anticoag Therapy) (0.89-1.11) APTT (26.0-36.3) seconds D-Dimer, Quantitative (Less Than 230) ng/mL Sodium 137 (133-145) mmol/L Potassium 3.6 (3.5-5.0) mmol/L Chloride 99 L (101-111) mmol/L Carbon Dioxide 34 H (22-32) mmol/L Anion Gap 4 (2-11) mmol/L BUN 22 (6-24) mg/dL Creatinine 1.37 H (0.67-1.17) mg/dL Est GFR ( Amer) 65.9 (>60) Est GFR (Non-Af Amer) 51.2 (>60) BUN/Creatinine Ratio 16.1 (8-20) Glucose 237 H (70-100) mg/dL Hemoglobin A1c (Less than 6.0) % Lactic Acid 0.8 (0.5-2.0) mmol/L Calcium 8.7 (8.6-10.3) mg/dL Magnesium 1.8 L (1.9-2.7) mg/dL Total Bilirubin 0.40 (0.2-1.0) mg/dL AST 21 (13-39) U/L ALT 17 (7-52) U/L Alkaline Phosphatase 117 H (34-104) U/L Total Creatine Kinase 187 (10-223) U/L CK-MB (CK-2) 3.8 (0.6-6.3) ng/mL Troponin I 0.01 (<0.04) ng/mL C-Reactive Protein 13.08 H (< 5.00) mg/L B-Natriuretic Peptide 39 ( - 100) pg/mL Total Protein 7.2 (6.4-8.9) g/dL Albumin 3.9 (3.2-5.2) g/dL Globulin 3.3 (2-4) g/dL Albumin/Globulin Ratio 1.2 (1-3) Lipase 36 (11.0-82.0) U/L TSH 2.53 (0.34-5.60) mcIU/mL Urine Color Urine Appearance Urine pH (5-9) Ur Specific [place]eland (1.010-1.030) Urine Protein (Negative) Urine Ketones (Negative) Urine Blood (Negative) Urine Nitrate (Negative) Urine Bilirubin (Negative) Urine Urobilinogen (Negative) Ur Leukocyte Esterase (Negative) Urine Glucose (Negative) 01/27/17 Range/Units 07:20 WBC (3.5-10.8) 10^3/ul RBC (4.0-5.4) 10^6/ul Hgb (14.0-18.0) g/dl Hct (42-52) % MCV (80-94) fL MCH (27-31) pg MCHC (31-36) g/dl RDW (10.5-15) % Plt Count (150-450) 10^3/ul MPV (7.4-10.4) um3 Neut % (Auto) (38-83) % Lymph % (Auto) (25-47) % Butler % (Auto) (1-9) % Eos % (Auto) (0-6) % Baso % (Auto) (0-2) % Absolute Neuts (auto) (1.5-7.7) 10^3/ul Absolute Lymphs (auto) (1.0-4.8) 10^3/ul Absolute Monos (auto) (0-0.8) 10^3/ul Absolute Eos (auto) (0-0.6) 10^3/ul Absolute Basos (auto) (0-0.2) 10^3/ul Absolute Nucleated RBC 10^3/ul Nucleated RBC % INR (Anticoag Therapy) (0.89-1.11) APTT (26.0-36.3) seconds D-Dimer, Quantitative (Less Than 230) ng/mL Sodium (133-145) mmol/L Potassium (3.5-5.0) mmol/L Chloride (101-111) mmol/L Carbon Dioxide (22-32) mmol/L Anion Gap (2-11) mmol/L BUN (6-24) mg/dL Creatinine (0.67-1.17) mg/dL Est GFR ( Amer) (>60) Est GFR (Non-Af Amer) (>60) BUN/Creatinine Ratio (8-20) Glucose (70-100) mg/dL Hemoglobin A1c 7.8 H (Less than 6.0) % Lactic Acid (0.5-2.0) mmol/L Calcium (8.6-10.3) mg/dL Magnesium (1.9-2.7) mg/dL Total Bilirubin (0.2-1.0) mg/dL AST (13-39) U/L ALT (7-52) U/L Alkaline Phosphatase (34-104) U/L Total Creatine Kinase (10-223) U/L CK-MB (CK-2) (0.6-6.3) ng/mL Troponin I (<0.04) ng/mL C-Reactive Protein (< 5.00) mg/L B-Natriuretic Peptide ( - 100) pg/mL Total Protein (6.4-8.9) g/dL Albumin (3.2-5.2) g/dL Globulin (2-4) g/dL Albumin/Globulin Ratio (1-3) Lipase (11.0-82.0) U/L TSH (0.34-5.60) mcIU/mL Urine Color Urine Appearance Urine pH (5-9) Ur Specific Leland (1.010-1.030) Urine Protein (Negative) Urine Ketones (Negative) Urine Blood (Negative) Urine Nitrate (Negative) Urine Bilirubin (Negative) Urine Urobilinogen (Negative) Ur Leukocyte Esterase (Negative) Urine Glucose (Negative) Microbiology and Other Data: Microbiology 01/27/17 13:25 Legionella Urinary Antigen - Final Urine Negative Legionella Streptococcus pneumoniae Ag Screen - Final Negative S. pneumo Antigen Assess/Plan/Problems-Billing Assessment: - Patient Problems (1) COPD with exacerbation Current Visit: Yes Status: Acute Code(s): J44.1 - CHRONIC OBSTRUCTIVE PULMONARY DISEASE W (ACUTE) EXACERBATION SNOMED Code(s): 817700122 Comment: Possible rib fx exacerbating his SOB. Rib X-rays ordered. Continue levofloxacin. Failed outpt azithromycin. (2) CAD (coronary artery disease) Current Visit: Yes Status: Acute Code(s): I25.10 - ATHSCL HEART DISEASE OF [place] CORONARY ARTERY W/O ANG PCTRS SNOMED Code(s): 40248018 Comment: Hx cardiac stents many yrs ago. Continue ASA, statin, BB. (3) Diabetes Current Visit: Yes Status: Acute Code(s): E11.9 - TYPE 2 DIABETES MELLITUS WITHOUT COMPLICATIONS SNOMED Code(s): 62138438 Comment: Continue glipizide. Hold metformin. Note had IV contast 01/27. Lispro by SS. (4) HTN (hypertension) Current Visit: Yes Status: Acute Code(s): I10 - ESSENTIAL (PRIMARY) HYPERTENSION SNOMED Code(s): 71576636 Comment: Continue spironolactone, amlodipine, hold bnzepril. (5) GERD (gastroesophageal reflux disease) Current Visit: Yes Status: Acute Code(s): K21.9 - GASTRO-ESOPHAGEAL REFLUX DISEASE WITHOUT ESOPHAGITIS SNOMED Code(s): 041656561 Comment: Continue PPI. (6) SALLY (obstructive sleep apnea) Current Visit: Yes Status: Acute Code(s): G47.33 - OBSTRUCTIVE SLEEP APNEA ( ADULT) (PEDIATRIC) SNOMED Code(s): 16774413 Comment: Pt does not use CPAP at home.
[2017-01-28] MEDS: glipiZIDE TAB.XL* 5 MG PO SCH (10:25)
[2017-01-28] MEDS: Omeprazole CAP* 20 MG PO SCH (10:26)
[2017-01-28] MEDS: guaiFENesin ER TAB 600 MG PO SCH ×2 (10:27→21:03)
[2017-01-28] MEDS: amLODIPine TAB* 5 MG PO SCH (10:28)
[2017-01-28] MEDS: Spironolactone TAB* 25 MG PO SCH (10:29)
[2017-01-28] MEDS: Metoprolol Succinate XL TAB* 100 MG PO SCH (10:30)
--- NOTE | 2017-01-28 11:04 | RAD ---
HISTORY: Left lower rib pain COMPARISONS: CT dated January 27, 2017 VIEWS: 4, Frontal view of the chest with frontal and oblique views of the left hemithorax FINDINGS: The patient is status post median sternotomy. There is no displaced rib fracture or appreciable pneumothorax. IMPRESSION: NO DISPLACED RIB FRACTURE OR PNEUMOTHORAX.
[2017-01-28] MEDS: Acetaminophen TAB* 325 MG PO SCH ×3 (11:57→23:26)
[2017-01-28] MEDS: Aspirin Low Dose CHEW TAB* 81 MG PO SCH (11:57)
[2017-01-28] MEDS: oxyCODONE TAB* 5 MG TAB PO PRN ×2 (15:50→18:49)
[2017-01-28] MEDS: Atorvastatin* 80 MG TAB PO SCH (18:12)
[2017-01-28] MEDS: Terazosin CAP* 5 MG PO SCH (21:03)
[2017-01-29] MEDS: oxyCODONE TAB* 5 MG TAB PO PRN ×5 (00:13→22:26)
[2017-01-29] MEDS: Acetaminophen TAB* 325 MG PO SCH ×4 (05:23→22:26)
[2017-01-29] MEDS: Heparin VIAL(*) 5000 UNITS/ML VIAL (FIVE THOUSAND) SUBCUT SCH ×3 (05:23→22:27)
[2017-01-29] MEDS ORDERED: Magnesium CITRATE* 300 ML BTL PO ONE (07:32)
[2017-01-29] MEDS: amLODIPine TAB* 5 MG PO SCH (10:12)
[2017-01-29] MEDS: Aspirin Low Dose CHEW TAB* 81 MG PO SCH (10:13)
[2017-01-29] MEDS: Metoprolol Succinate XL TAB* 100 MG PO SCH (10:14)
[2017-01-29] MEDS: Spironolactone TAB* 25 MG PO SCH (10:14)
[2017-01-29] MEDS: glipiZIDE TAB.XL* 5 MG PO SCH (10:14)
[2017-01-29] MEDS: Omeprazole CAP* 20 MG PO SCH (10:15)
[2017-01-29] MEDS: guaiFENesin ER TAB 600 MG PO SCH ×2 (10:15→22:26)
[2017-01-29] MEDS: Polyethylene Glycol 3350* 17 GM PACKET PO SCH ×2 (10:17→22:27)
[2017-01-29] MEDS: Insulin LISPRO* 1 UNITS UNIT SUBCUT SCH ×3 (10:18→18:05)
--- NOTE | 2017-01-29 13:38 | PN ---
Subjective Date of Service: 01/29/17 Interval History: Pain better today. No new c/o. He states the pain has moved into his L chest. Objective Active Medications: Acetaminophen (Tylenol Tab*) 650 mg PO Q6H [facility] Last Admin: 01/29/17 05:23 Dose: 650 mg Albuterol (Ventolin 2.5 Mg/3 Ml Neb.Dayan*) 2.5 mg INH Q2H PRN PRN Reason: SOB/WHEEZING Last Admin: 01/28/17 23:52 Dose: 2.5 mg Albuterol (Ventolin Hfa Inhaler*) 2 puff INH Q6H PRN PRN Reason: WHEEZING Last Admin: 01/27/17 20:14 Dose: 2 puff Amlodipine Besylate (Norvasc Tab*) 10 mg PO DAILY [facility] Last Admin: 01/29/17 10:12 Dose: 10 mg Aspirin (Aspirin Low Dose Tab*) 81 mg PO DAILY [facility] Last Admin: 01/29/17 10:13 Dose: 81 mg Atorvastatin Calcium (Lipitor*) 80 mg PO 1700 [facility] Last Admin: 01/28/17 18:12 Dose: 80 mg Dextrose (D50w Syringe 50 Ml*) 12.5 gm IV PUSH .FOR FS < 60 - SS PRN PRN Reason: FS < 60 Glipizide (Glucotrol Xl*) 5 mg PO DAILY [facility] Last Admin: 01/29/17 10:14 Dose: 5 mg Guaifenesin (Mucinex*) 1,200 mg PO BID [facility] Last Admin: 01/29/17 10:15 Dose: 1,200 mg Heparin Sodium (Porcine) (Heparin Vial(*)) 5,000 units SUBCUT Q8HR [facility] Last Admin: 01/29/17 05:23 Dose: 5,000 units Piperacillin Sod/Tazobactam (Sod 3.375 gm/ Sodium Chloride) 100 mls @ 25 mls/ hr IVPB Q8H [facility] Last Admin: 01/29/17 10:20 Dose: 25 mls/hr Insulin Human Lispro (Humalog*) 0 units SUBCUT AC [facility] PRN Reason: Protocol Last Admin: 01/29/17 10:18 Dose: 2 unit Iodixanol (Visipaque* 320 (Contrast)) 134 ml IV ONCE [facility] Stop: 01/29/17 14:08 Last Admin: 01/27/17 15:58 Dose: 134 ml Metoprolol Succinate (Toprol Xl Tab*) 100 mg PO DAILY [facility] Last Admin: 01/29/17 10:14 Dose: 100 mg Omeprazole (Prilosec Cap*) 20 mg PO DAILY [facility] Last Admin: 01/29/17 10:15 Dose: 20 mg Ondansetron HCl (Zofran Inj*) 4 mg IV Q6H PRN PRN Reason: NAUSEA Oxycodone HCl (Roxycodone Tab*) 5 mg PO Q3H PRN PRN Reason: PAIN Last Admin: 01/29/17 10:11 Dose: 5 mg Polyethylene Glycol/Electrolytes (Miralax*) 17 gm PO 0800,2100 [facility] Last Admin: 01/29/17 10:17 Dose: 17 gm Spironolactone (Aldactone Tab*) 50 mg PO DAILY [facility] Last Admin: 01/29/17 10:14 Dose: 50 mg Terazosin HCl (Hytrin Cap*) 5 mg PO BEDTIME [facility] Last Admin: 01/28/17 21:03 Dose: 5 mg Vital Signs 01/28/17 01/28/17 01/28/17 15:50 16:24 17:50 Temperature Pulse Rate Respiratory 18 18 Rate Blood Pressure (mmHg) O2 Sat by Pulse 94 Oximetry 01/28/17 01/28/17 01/28/17 18:49 19:03 20:49 Temperature Pulse Rate Respiratory 18 18 18 Rate Blood Pressure (mmHg) O2 Sat by Pulse Oximetry 01/28/17 01/28/17 01/28/17 23:13 23:52 23:53 Temperature 97.7 F Pulse Rate 65 66 Respiratory 20 20 Rate Blood Pressure 141/76 (mmHg) O2 Sat by Pulse 95 96 96 Oximetry 01/29/17 01/29/17 01/29/17 00:13 02:13 05:23 Temperature Pulse Rate Respiratory 22 22 20 Rate Blood Pressure (mmHg) O2 Sat by Pulse Oximetry 01/29/17 01/29/17 01/29/17 07:11 07:30 08:34 Temperature 97.3 F Pulse Rate 61 77 Respiratory 16 20 18 Rate Blood Pressure 145/71 (mmHg) O2 Sat by Pulse 90 92 Oximetry 01/29/17 01/29/17 10:11 12:11 Temperature Pulse Rate Respiratory 16 18 Rate Blood Pressure (mmHg) O2 Sat by Pulse Oximetry Oxygen Devices in Use Now: Nasal Cannula Appearance: Alert, in a chair. In good spirits. Looks comfortable. Eyes: No Scleral Icterus Ears/Nose/Mouth/Throat: Clear Oropharnyx, Mucous Membranes Moist Neck: NL Appearance and Movements; NL JVP, No Thyroid Enlargement, Masses Respiratory: Symmetrical Chest Expansion and Respiratory Effort, Clear to Auscultation, Clear to Percussion Cardiovascular: NL Sounds; No Murmurs; No JVD, RRR, No Edema, - Abdominal: NL Sounds; No Tenderness; No Distention, No Hepatosplenomegaly, - Extremities: No Edema, No Clubbing, Cyanosis, - Skin: No Rash or Ulcers, No Nodules or Sclerosis, - Neurological: Alert and Oriented x 3, NL Sensation Result Diagrams: 01/28/17 04:55 01/28/17 04:55 Additional Lab and Data: Lab Results 01/27/17 01/27/17 01/27/17 Range/Units 07:20 07:20 07:20 WBC 5.4 (3.5-10.8) 10^3/ul RBC 5.38 (4.0-5.4) 10^6/ul Hgb 16.1 (14.0-18.0) g/dl Hct 49 (42-52) % MCV 91 (80-94) fL MCH 30 (27-31) pg MCHC 33 (31-36) g/dl RDW 14 (10.5-15) % Plt Count 260 (150-450) 10^3/ul MPV 8 (7.4-10.4) um3 Neut % (Auto) 67.5 (38-83) % Lymph % (Auto) 16.8 L (25-47) % [place] % (Auto) 10.2 H (1-9) % Eos % (Auto) 4.7 (0-6) % Baso % (Auto) 0.8 (0-2) % Absolute Neuts (auto) 3.7 (1.5-7.7) 10^3/ul Absolute Lymphs (auto) 0.9 L (1.0-4.8) 10^3/ul Absolute Monos (auto) 0.6 (0-0.8) 10^3/ul Absolute Eos (auto) 0.3 (0-0.6) 10^3/ul Absolute Basos (auto) 0 (0-0.2) 10^3/ul Absolute Nucleated RBC 0.02 10^3/ul Nucleated RBC % 0.3 INR (Anticoag Therapy) 0.84 L (0.89-1.11) APTT 31.8 (26.0-36.3) seconds D-Dimer, Quantitative < 200 (Less Than 230) ng/mL Sodium (133-145) mmol/L Potassium (3.5-5.0) mmol/L Chloride (101-111) mmol/L Carbon Dioxide (22-32) mmol/L Anion Gap (2-11) mmol/L BUN (6-24) mg/dL Creatinine (0.67-1.17) mg/dL Est GFR ( Amer) (>60) Est GFR (Non-Af Amer) (>60) BUN/Creatinine Ratio (8-20) Glucose (70-100) mg/dL Hemoglobin A1c (Less than 6.0) % Lactic Acid (0.5-2.0) mmol/L Calcium (8.6-10.3) mg/dL Magnesium (1.9-2.7) mg/dL Total Bilirubin (0.2-1.0) mg/dL AST (13-39) U/L ALT (7-52) U/L Alkaline Phosphatase (34-104) U/L Total Creatine Kinase (10-223) U/L CK-MB (CK-2) (0.6-6.3) ng/mL Troponin I (<0.04) ng/mL C-Reactive Protein (< 5.00) mg/L B-Natriuretic Peptide ( - 100) pg/mL Total Protein (6.4-8.9) g/dL Albumin (3.2-5.2) g/dL Globulin (2-4) g/dL Albumin/Globulin Ratio (1-3) Lipase (11.0-82.0) U/L TSH (0.34-5.60) mcIU/mL Urine Color Colorless Urine Appearance Clear Urine pH 5.0 (5-9) Ur Specific [place] 1.006 L (1.010-1.030) Urine Protein Negative (Negative) Urine Ketones Negative (Negative) Urine Blood Negative (Negative) Urine Nitrate Negative (Negative) Urine Bilirubin Negative (Negative) Urine Urobilinogen Negative (Negative) Ur Leukocyte Esterase Negative (Negative) Urine Glucose 1+(50 mg/dl) H (Negative) 01/27/17 01/27/17 01/27/17 Range/Units 07:20 07:20 07:20 WBC (3.5-10.8) 10^3/ul RBC (4.0-5.4) 10^6/ul Hgb (14.0-18.0) g/dl Hct (42-52) % MCV (80-94) fL MCH (27-31) pg MCHC (31-36) g/dl RDW (10.5-15) % Plt Count (150-450) 10^3/ul MPV (7.4-10.4) um3 Neut % (Auto) (38-83) % Lymph % (Auto) (25-47) % [place] % (Auto) (1-9) % Eos % (Auto) (0-6) % Baso % (Auto) (0-2) % Absolute Neuts (auto) (1.5-7.7) 10^3/ul Absolute Lymphs (auto) (1.0-4.8) 10^3/ul Absolute Monos (auto) (0-0.8) 10^3/ul Absolute Eos (auto) (0-0.6) 10^3/ul Absolute Basos (auto) (0-0.2) 10^3/ul Absolute Nucleated RBC 10^3/ul Nucleated RBC % INR (Anticoag Therapy) (0.89-1.11) APTT (26.0-36.3) seconds D-Dimer, Quantitative (Less Than 230) ng/mL Sodium 137 (133-145) mmol/L Potassium 3.6 (3.5-5.0) mmol/L Chloride 99 L (101-111) mmol/L Carbon Dioxide 34 H (22-32) mmol/L Anion Gap 4 (2-11) mmol/L BUN 22 (6-24) mg/dL Creatinine 1.37 H (0.67-1.17) mg/dL Est GFR ( Amer) 65.9 (>60) Est GFR (Non-Af Amer) 51.2 (>60) BUN/Creatinine Ratio 16.1 (8-20) Glucose 237 H (70-100) mg/dL Hemoglobin A1c (Less than 6.0) % Lactic Acid 0.8 (0.5-2.0) mmol/L Calcium 8.7 (8.6-10.3) mg/dL Magnesium 1.8 L (1.9-2.7) mg/dL Total Bilirubin 0.40 (0.2-1.0) mg/dL AST 21 (13-39) U/L ALT 17 (7-52) U/L Alkaline Phosphatase 117 H (34-104) U/L Total Creatine Kinase 187 (10-223) U/L CK-MB (CK-2) 3.8 (0.6-6.3) ng/mL Troponin I 0.01 (<0.04) ng/mL C-Reactive Protein 13.08 H (< 5.00) mg/L B-Natriuretic Peptide 39 ( - 100) pg/mL Total Protein 7.2 (6.4-8.9) g/dL Albumin 3.9 (3.2-5.2) g/dL Globulin 3.3 (2-4) g/dL Albumin/Globulin Ratio 1.2 (1-3) Lipase 36 (11.0-82.0) U/L TSH 2.53 (0.34-5.60) mcIU/mL Urine Color Urine Appearance Urine pH (5-9) Ur Specific [place] (1.010-1.030) Urine Protein (Negative) Urine Ketones (Negative) Urine Blood (Negative) Urine Nitrate (Negative) Urine Bilirubin (Negative) Urine Urobilinogen (Negative) Ur Leukocyte Esterase (Negative) Urine Glucose (Negative) 01/27/17 Range/Units 07:20 WBC (3.5-10.8) 10^3/ul RBC (4.0-5.4) 10^6/ul Hgb (14.0-18.0) g/dl Hct (42-52) % MCV (80-94) fL MCH (27-31) pg MCHC (31-36) g/dl RDW (10.5-15) % Plt Count (150-450) 10^3/ul MPV (7.4-10.4) um3 Neut % (Auto) (38-83) % Lymph % (Auto) (25-47) % [place] % (Auto) (1-9) % Eos % (Auto) (0-6) % Baso % (Auto) (0-2) % Absolute Neuts (auto) (1.5-7.7) 10^3/ul Absolute Lymphs (auto) (1.0-4.8) 10^3/ul Absolute Monos (auto) (0-0.8) 10^3/ul Absolute Eos (auto) (0-0.6) 10^3/ul Absolute Basos (auto) (0-0.2) 10^3/ul Absolute Nucleated RBC 10^3/ul Nucleated RBC % INR (Anticoag Therapy) (0.89-1.11) APTT (26.0-36.3) seconds D-Dimer, Quantitative (Less Than 230) ng/mL Sodium (133-145) mmol/L Potassium (3.5-5.0) mmol/L Chloride (101-111) mmol/L Carbon Dioxide (22-32) mmol/L Anion Gap (2-11) mmol/L BUN (6-24) mg/dL Creatinine (0.67-1.17) mg/dL Est GFR ( Amer) (>60) Est GFR (Non-Af Amer) (>60) BUN/Creatinine Ratio (8-20) Glucose (70-100) mg/dL Hemoglobin A1c 7.8 H (Less than 6.0) % Lactic Acid (0.5-2.0) mmol/L Calcium (8.6-10.3) mg/dL Magnesium (1.9-2.7) mg/dL Total Bilirubin (0.2-1.0) mg/dL AST (13-39) U/L ALT (7-52) U/L Alkaline Phosphatase (34-104) U/L Total Creatine Kinase (10-223) U/L CK-MB (CK-2) (0.6-6.3) ng/mL Troponin I (<0.04) ng/mL C-Reactive Protein (< 5.00) mg/L B-Natriuretic Peptide ( - 100) pg/mL Total Protein (6.4-8.9) g/dL Albumin (3.2-5.2) g/dL Globulin (2-4) g/dL Albumin/Globulin Ratio (1-3) Lipase (11.0-82.0) U/L TSH (0.34-5.60) mcIU/mL Urine Color Urine Appearance Urine pH (5-9) Ur Specific [place] (1.010-1.030) Urine Protein (Negative) Urine Ketones (Negative) Urine Blood (Negative) Urine Nitrate (Negative) Urine Bilirubin (Negative) Urine Urobilinogen (Negative) Ur Leukocyte Esterase (Negative) Urine Glucose (Negative) Microbiology and Other Data: Microbiology 01/27/17 13:25 Legionella Urinary Antigen - Final Urine Negative Legionella Streptococcus pneumoniae Ag Screen - Final Negative S. pneumo Antigen Assess/Plan/Problems-Billing Assessment: - Patient Problems (1) COPD with exacerbation Current Visit: Yes Status: Acute Code(s): J44.1 - CHRONIC OBSTRUCTIVE PULMONARY DISEASE W (ACUTE) EXACERBATION SNOMED Code(s): 961676100 Comment: Possible rib fx exacerbating his SOB. Rib X-rays ordered. Continue levofloxacin. Failed outpt azithromycin. (2) CAD (coronary artery disease) Current Visit: Yes Status: Acute Code(s): I25.10 - ATHSCL HEART DISEASE OF [place] CORONARY ARTERY W/O ANG PCTRS SNOMED Code(s): 19511292 Comment: Hx cardiac stents many yrs ago. Continue ASA, statin, BB. (3) Diabetes Current Visit: Yes Status: Acute Code(s): E11.9 - TYPE 2 DIABETES MELLITUS WITHOUT COMPLICATIONS SNOMED Code(s): 42766899 Comment: Continue glipizide. Re-start metformin at lower dose 01/30. Note had IV contast 01/27. Lispro by SS. (4) HTN (hypertension) Current Visit: Yes Status: Acute Code(s): I10 - ESSENTIAL (PRIMARY) HYPERTENSION SNOMED Code(s): 96933279 Comment: Continue spironolactone, amlodipine, hold bnzepril. (5) GERD (gastroesophageal reflux disease) Current Visit: Yes Status: Acute Code(s): K21.9 - GASTRO-ESOPHAGEAL REFLUX DISEASE WITHOUT ESOPHAGITIS SNOMED Code(s): 194553151 Comment: Continue PPI. (6) SALLY (obstructive sleep apnea) Current Visit: Yes Status: Acute Code(s): G47.33 - OBSTRUCTIVE SLEEP APNEA ( ADULT) (PEDIATRIC) SNOMED Code(s): 05395776 Comment: Pt does not use CPAP at home. Overnight oximetry 01/29-01/30 on RA. He does not have home O2. (7) Abdominal pain Current Visit: Yes Status: Acute Code(s): R10.9 - UNSPECIFIED ABDOMINAL PAIN SNOMED Code(s): 83031710 Comment: Not clear if pain in chest or abdomen. Diverticulitis is a possiblity. I plan on giving oral amox/clav after discharge which will cover both COPD exacerbation and divertiulitis.
[2017-01-29] MEDS: Atorvastatin* 80 MG TAB PO SCH (18:06)
[2017-01-29] MEDS: Terazosin CAP* 5 MG PO SCH (22:27)
[2017-01-30] MEDS: Acetaminophen TAB* 325 MG PO SCH (04:41)
[2017-01-30] MEDS: Heparin VIAL(*) 5000 UNITS/ML VIAL (FIVE THOUSAND) SUBCUT SCH (05:59)
--- NOTE | 2017-01-30 08:38 | DCNOTE ---
Subjective Date of Service: 01/30/17 Interval History: Pain better. Some brown sputum. Overall feels much better. Anxious to go home. Objective Active Medications: Acetaminophen (Tylenol Tab*) 650 mg PO Q6H [facility] [place] Last Admin: 01/30/17 04:41 Dose: 650 mg Albuterol (Ventolin 2.5 Mg/3 Ml Neb.Dayan*) 2.5 mg INH Q2H PRN PRN Reason: SOB/WHEEZING Last Admin: 01/28/17 23:52 Dose: 2.5 mg Albuterol (Ventolin Hfa Inhaler*) 2 puff INH Q6H PRN PRN Reason: WHEEZING Last Admin: 01/27/17 20:14 Dose: 2 puff Amlodipine Besylate (Norvasc Tab*) 10 mg PO DAILY [facility] [place] Last Admin: 01/29/17 10:12 Dose: 10 mg Amoxicillin/Clavulanate Potassium (Augmentin Tab*) 875 mg PO BID [facility] [place] Aspirin (Aspirin Low Dose Tab*) 81 mg PO DAILY [facility] [place] Last Admin: 01/29/17 10:13 Dose: 81 mg Atorvastatin Calcium (Lipitor*) 80 mg PO 1700 [facility] [place] Last Admin: 01/29/17 18:06 Dose: 80 mg Dextrose (D50w Syringe 50 Ml*) 12.5 gm IV PUSH .FOR FS < 60 - SS PRN PRN Reason: FS < 60 Glipizide (Glucotrol Xl*) 5 mg PO DAILY [facility] [place] Last Admin: 01/29/17 10:14 Dose: 5 mg Guaifenesin (Mucinex*) 1,200 mg PO BID [facility] [place] Last Admin: 01/29/17 22:26 Dose: 1,200 mg Heparin Sodium (Porcine) (Heparin Vial(*)) 5,000 units SUBCUT Q8HR [facility] [place] Last Admin: 01/30/17 05:59 Dose: 5,000 units Insulin Human Lispro (Humalog*) 0 units SUBCUT AC [facility] [place] PRN Reason: Protocol Last Admin: 01/29/17 18:05 Dose: 2 unit Metformin HCl (Glucophage Er (Nf)) 750 mg PO DAILY [facility] [place] Metformin HCl (Glucophage Er (Nf)) 1,500 mg PO BEDTIME [facility] [place] Metoprolol Succinate (Toprol Xl Tab*) 100 mg PO DAILY [facility] [place] Last Admin: 01/29/17 10:14 Dose: 100 mg Omeprazole (Prilosec Cap*) 20 mg PO DAILY [facility] [place] Last Admin: 01/29/17 10:15 Dose: 20 mg Ondansetron HCl (Zofran Inj*) 4 mg IV Q6H PRN PRN Reason: NAUSEA Oxycodone HCl (Roxycodone Tab*) 5 mg PO Q3H PRN PRN Reason: PAIN Last Admin: 01/29/17 22:26 Dose: 5 mg Polyethylene Glycol/Electrolytes (Miralax*) 17 gm PO 0800,2100 [facility] [place] Last Admin: 01/29/17 22:27 Dose: Not Given Spironolactone (Aldactone Tab*) 50 mg PO DAILY [facility] [place] Last Admin: 01/29/17 10:14 Dose: 50 mg Terazosin HCl (Hytrin Cap*) 5 mg PO BEDTIME [facility] [place] Last Admin: 01/29/17 22:27 Dose: 5 mg Vital Signs 01/29/17 01/29/17 01/29/17 08:34 10:11 11:23 Temperature Pulse Rate 77 Respiratory 18 16 18 Rate Blood Pressure (mmHg) O2 Sat by Pulse 92 Oximetry 01/29/17 01/29/17 01/29/17 12:11 14:23 16:23 Temperature Pulse Rate Respiratory 18 18 20 Rate Blood Pressure (mmHg) O2 Sat by Pulse Oximetry 01/29/17 01/29/17 01/29/17 16:41 18:30 19:36 Temperature 97.6 F 98.3 F 98.3 F Pulse Rate 66 69 71 Respiratory 20 20 20 Rate Blood Pressure 142/73 168/70 157/74 (mmHg) O2 Sat by Pulse 92 95 90 Oximetry 01/29/17 01/29/17 01/29/17 20:18 20:37 22:26 Temperature Pulse Rate Respiratory 20 18 Rate Blood Pressure (mmHg) O2 Sat by Pulse 92 Oximetry 01/29/17 01/30/17 01/30/17 23:33 00:26 03:56 Temperature 98.5 F 98.2 F Pulse Rate 68 73 Respiratory 18 18 20 Rate Blood Pressure 155/71 165/75 (mmHg) O2 Sat by Pulse 92 90 Oximetry Oxygen Devices in Use Now: Nasal Cannula Appearance: Alert, in a chair. In good spirits. Looks comfortable. Eyes: No Scleral Icterus Ears/Nose/Mouth/Throat: Clear Oropharnyx, Mucous Membranes Moist Neck: NL Appearance and Movements; NL JVP, No Thyroid Enlargement, Masses Respiratory: Symmetrical Chest Expansion and Respiratory Effort, Clear to Auscultation, Clear to Percussion, - - No more L chest wall tenderness. Cardiovascular: NL Sounds; No Murmurs; No JVD, RRR, No Edema, - Extremities: No Clubbing, Cyanosis, - - Tr edema BL Skin: No Rash or Ulcers, No Nodules or Sclerosis, - Neurological: Alert and Oriented x 3, NL Sensation Result Diagrams: 01/28/17 04:55 01/28/17 04:55 Additional Lab and Data: Lab Results 01/27/17 01/27/17 01/27/17 Range/Units 07:20 07:20 07:20 WBC 5.4 (3.5-10.8) 10^3/ul RBC 5.38 (4.0-5.4) 10^6/ul Hgb 16.1 (14.0-18.0) g/dl Hct 49 (42-52) % MCV 91 (80-94) fL MCH 30 (27-31) pg MCHC 33 (31-36) g/dl RDW 14 (10.5-15) % Plt Count 260 (150-450) 10^3/ul MPV 8 (7.4-10.4) um3 Neut % (Auto) 67.5 (38-83) % Lymph % (Auto) 16.8 L (25-47) % [place] % (Auto) 10.2 H (1-9) % Eos % (Auto) 4.7 (0-6) % Baso % (Auto) 0.8 (0-2) % Absolute Neuts (auto) 3.7 (1.5-7.7) 10^3/ul Absolute Lymphs (auto) 0.9 L (1.0-4.8) 10^3/ul Absolute Monos (auto) 0.6 (0-0.8) 10^3/ul Absolute Eos (auto) 0.3 (0-0.6) 10^3/ul Absolute Basos (auto) 0 (0-0.2) 10^3/ul Absolute Nucleated RBC 0.02 10^3/ul Nucleated RBC % 0.3 INR (Anticoag Therapy) 0.84 L (0.89-1.11) APTT 31.8 (26.0-36.3) seconds D-Dimer, Quantitative < 200 (Less Than 230) ng/mL Sodium (133-145) mmol/L Potassium (3.5-5.0) mmol/L Chloride (101-111) mmol/L Carbon Dioxide (22-32) mmol/L Anion Gap (2-11) mmol/L BUN (6-24) mg/dL Creatinine (0.67-1.17) mg/dL Est GFR ( Amer) (>60) Est GFR (Non-Af Amer) (>60) BUN/Creatinine Ratio (8-20) Glucose (70-100) mg/dL Hemoglobin A1c (Less than 6.0) % Lactic Acid (0.5-2.0) mmol/L Calcium (8.6-10.3) mg/dL Magnesium (1.9-2.7) mg/dL Total Bilirubin (0.2-1.0) mg/dL AST (13-39) U/L ALT (7-52) U/L Alkaline Phosphatase (34-104) U/L Total Creatine Kinase (10-223) U/L CK-MB (CK-2) (0.6-6.3) ng/mL Troponin I (<0.04) ng/mL C-Reactive Protein (< 5.00) mg/L B-Natriuretic Peptide ( - 100) pg/mL Total Protein (6.4-8.9) g/dL Albumin (3.2-5.2) g/dL Globulin (2-4) g/dL Albumin/Globulin Ratio (1-3) Lipase (11.0-82.0) U/L TSH (0.34-5.60) mcIU/mL Urine Color Colorless Urine Appearance Clear Urine pH 5.0 (5-9) Ur Specific [place] 1.006 L (1.010-1.030) Urine Protein Negative (Negative) Urine Ketones Negative (Negative) Urine Blood Negative (Negative) Urine Nitrate Negative (Negative) Urine Bilirubin Negative (Negative) Urine Urobilinogen Negative (Negative) Ur Leukocyte Esterase Negative (Negative) Urine Glucose 1+(50 mg/dl) H (Negative) 01/27/17 01/27/17 01/27/17 Range/Units 07:20 07:20 07:20 WBC (3.5-10.8) 10^3/ul RBC (4.0-5.4) 10^6/ul Hgb (14.0-18.0) g/dl Hct (42-52) % MCV (80-94) fL MCH (27-31) pg MCHC (31-36) g/dl RDW (10.5-15) % Plt Count (150-450) 10^3/ul MPV (7.4-10.4) um3 Neut % (Auto) (38-83) % Lymph % (Auto) (25-47) % [place] % (Auto) (1-9) % Eos % (Auto) (0-6) % Baso % (Auto) (0-2) % Absolute Neuts (auto) (1.5-7.7) 10^3/ul Absolute Lymphs (auto) (1.0-4.8) 10^3/ul Absolute Monos (auto) (0-0.8) 10^3/ul Absolute Eos (auto) (0-0.6) 10^3/ul Absolute Basos (auto) (0-0.2) 10^3/ul Absolute Nucleated RBC 10^3/ul Nucleated RBC % INR (Anticoag Therapy) (0.89-1.11) APTT (26.0-36.3) seconds D-Dimer, Quantitative (Less Than 230) ng/mL Sodium 137 (133-145) mmol/L Potassium 3.6 (3.5-5.0) mmol/L Chloride 99 L (101-111) mmol/L Carbon Dioxide 34 H (22-32) mmol/L Anion Gap 4 (2-11) mmol/L BUN 22 (6-24) mg/dL Creatinine 1.37 H (0.67-1.17) mg/dL Est GFR ( Amer) 65.9 (>60) Est GFR (Non-Af Amer) 51.2 (>60) BUN/Creatinine Ratio 16.1 (8-20) Glucose 237 H (70-100) mg/dL Hemoglobin A1c (Less than 6.0) % Lactic Acid 0.8 (0.5-2.0) mmol/L Calcium 8.7 (8.6-10.3) mg/dL Magnesium 1.8 L (1.9-2.7) mg/dL Total Bilirubin 0.40 (0.2-1.0) mg/dL AST 21 (13-39) U/L ALT 17 (7-52) U/L Alkaline Phosphatase 117 H (34-104) U/L Total Creatine Kinase 187 (10-223) U/L CK-MB (CK-2) 3.8 (0.6-6.3) ng/mL Troponin I 0.01 (<0.04) ng/mL C-Reactive Protein 13.08 H (< 5.00) mg/L B-Natriuretic Peptide 39 ( - 100) pg/mL Total Protein 7.2 (6.4-8.9) g/dL Albumin 3.9 (3.2-5.2) g/dL Globulin 3.3 (2-4) g/dL Albumin/Globulin Ratio 1.2 (1-3) Lipase 36 (11.0-82.0) U/L TSH 2.53 (0.34-5.60) mcIU/mL Urine Color Urine Appearance Urine pH (5-9) Ur Specific [place] (1.010-1.030) Urine Protein (Negative) Urine Ketones (Negative) Urine Blood (Negative) Urine Nitrate (Negative) Urine Bilirubin (Negative) Urine Urobilinogen (Negative) Ur Leukocyte Esterase (Negative) Urine Glucose (Negative) 01/27/17 Range/Units 07:20 WBC (3.5-10.8) 10^3/ul RBC (4.0-5.4) 10^6/ul Hgb (14.0-18.0) g/dl Hct (42-52) % MCV (80-94) fL MCH (27-31) pg MCHC (31-36) g/dl RDW (10.5-15) % Plt Count (150-450) 10^3/ul MPV (7.4-10.4) um3 Neut % (Auto) (38-83) % Lymph % (Auto) (25-47) % [place] % (Auto) (1-9) % Eos % (Auto) (0-6) % Baso % (Auto) (0-2) % Absolute Neuts (auto) (1.5-7.7) 10^3/ul Absolute Lymphs (auto) (1.0-4.8) 10^3/ul Absolute Monos (auto) (0-0.8) 10^3/ul Absolute Eos (auto) (0-0.6) 10^3/ul Absolute Basos (auto) (0-0.2) 10^3/ul Absolute Nucleated RBC 10^3/ul Nucleated RBC % INR (Anticoag Therapy) (0.89-1.11) APTT (26.0-36.3) seconds D-Dimer, Quantitative (Less Than 230) ng/mL Sodium (133-145) mmol/L Potassium (3.5-5.0) mmol/L Chloride (101-111) mmol/L Carbon Dioxide (22-32) mmol/L Anion Gap (2-11) mmol/L BUN (6-24) mg/dL Creatinine (0.67-1.17) mg/dL Est GFR ( Amer) (>60) Est GFR (Non-Af Amer) (>60) BUN/Creatinine Ratio (8-20) Glucose (70-100) mg/dL Hemoglobin A1c 7.8 H (Less than 6.0) % Lactic Acid (0.5-2.0) mmol/L Calcium (8.6-10.3) mg/dL Magnesium (1.9-2.7) mg/dL Total Bilirubin (0.2-1.0) mg/dL AST (13-39) U/L ALT (7-52) U/L Alkaline Phosphatase (34-104) U/L Total Creatine Kinase (10-223) U/L CK-MB (CK-2) (0.6-6.3) ng/mL Troponin I (<0.04) ng/mL C-Reactive Protein (< 5.00) mg/L B-Natriuretic Peptide ( - 100) pg/mL Total Protein (6.4-8.9) g/dL Albumin (3.2-5.2) g/dL Globulin (2-4) g/dL Albumin/Globulin Ratio (1-3) Lipase (11.0-82.0) U/L TSH (0.34-5.60) mcIU/mL Urine Color Urine Appearance Urine pH (5-9) Ur Specific [place] (1.010-1.030) Urine Protein (Negative) Urine Ketones (Negative) Urine Blood (Negative) Urine Nitrate (Negative) Urine Bilirubin (Negative) Urine Urobilinogen (Negative) Ur Leukocyte Esterase (Negative) Urine Glucose (Negative) Microbiology and Other Data: Microbiology 01/27/17 13:25 Legionella Urinary Antigen - Final Urine Negative Legionella Streptococcus pneumoniae Ag Screen - Final Negative S. pneumo Antigen Assess/Plan/Problems-Billing Assessment: - Patient Problems (1) COPD with exacerbation Current Visit: Yes Status: Acute Code(s): J44.1 - CHRONIC OBSTRUCTIVE PULMONARY DISEASE W (ACUTE) EXACERBATION SNOMED Code(s): 966192982 Comment: Rib X-rays ordered showed no displaced fx. Possible non-displaced rib fx exacerbating his SOB. Overnight oximetry showed O2 sat under 80% for 7.1 % of the recorded time. O2 sat on RA by me today showed 83-85%. Home O2 to be arranged. (2) CAD (coronary artery disease) Current Visit: Yes Status: Acute Code(s): I25.10 - ATHSCL HEART DISEASE OF [place] CORONARY ARTERY W/O ANG PCTRS SNOMED Code(s): 68204100 Comment: Hx cardiac stents many yrs ago. Continue ASA, statin, BB. (3) Diabetes Current Visit: Yes Status: Acute Code(s): E11.9 - TYPE 2 DIABETES MELLITUS WITHOUT COMPLICATIONS SNOMED Code(s): 27746445 Comment: Continue glipizide. Re-start metformin at home dose 01/30. Note had IV contast 01/27. (4) HTN (hypertension) Current Visit: Yes Status: Acute Code(s): I10 - ESSENTIAL (PRIMARY) HYPERTENSION SNOMED Code(s): 89116134 Comment: Continue spironolactone, amlodipine, hold bnzepril. (5) GERD (gastroesophageal reflux disease) Current Visit: Yes Status: Acute Code(s): K21.9 - GASTRO-ESOPHAGEAL REFLUX DISEASE WITHOUT ESOPHAGITIS SNOMED Code(s): 999202514 Comment: Continue PPI. (6) SALLY (obstructive sleep apnea) Current Visit: Yes Status: Acute Code(s): G47.33 - OBSTRUCTIVE SLEEP APNEA ( ADULT) (PEDIATRIC) SNOMED Code(s): 86427908 Comment: Pt does not use CPAP at home. Overnight oximetry 01/29-01/30 on RA, see above. Pt advised to discuss sleep lab eval with Dr. Abel but reacted negatively to this suggestion. (7) Abdominal pain Current Visit: Yes Status: Acute Code(s): R10.9 - UNSPECIFIED ABDOMINAL PAIN SNOMED Code(s): 06776680 Comment: Not clear if pain in chest or abdomen. Diverticulitis is a possiblity. I plan on giving oral amox/clav after discharge which will cover both COPD exacerbation and divertiulitis. Status and Disposition: Discharge now. Fup Dr. Abel. Home O2 arranged
--- NOTE | 2017-01-30 08:44 | PN ---
Progress Note - Progress Note Date of Service: 01/30/17 Note: Time spent on discharge 45 minutes.
[2017-01-30] MEDS: Insulin LISPRO* 1 UNITS UNIT SUBCUT SCH (08:46)
[2017-01-30] MEDS: Aspirin Low Dose CHEW TAB* 81 MG PO SCH (08:49)
[2017-01-30] MEDS: Omeprazole CAP* 20 MG PO SCH (08:49)
[2017-01-30] MEDS: amLODIPine TAB* 5 MG PO SCH (08:49)
[2017-01-30] MEDS: Spironolactone TAB* 25 MG PO SCH (08:49)
[2017-01-30] MEDS: guaiFENesin ER TAB 600 MG PO SCH (08:50)
[2017-01-30] MEDS: glipiZIDE TAB.XL* 5 MG PO SCH (08:50)
[2017-01-30] MEDS: Metoprolol Succinate XL TAB* 100 MG PO SCH (08:52)
[2017-01-30] MEDS: Polyethylene Glycol 3350* 17 GM PACKET PO SCH (08:58)
[2017-01-30] MEDS ORDERED: Amoxicillin/Clavulanate TAB* 875 MG PO SCH (09:00)
[2017-01-30] MEDS ORDERED: METFORMIN 750 MG PO SCH ×2 (09:00→21:00)
--- NOTE | 2017-01-30 09:39 | DS ---
CC: Dr. Abel* DISCHARGE SUMMARY: DATE OF ADMISSION: 01/28/17 DATE OF DISCHARGE: 01/30/17 HISTORY: This 71-year-old man presented with chest pain, within the left lower abdomen he said during the hospital stay, it moved up into the left chest. It was never really clear to me whether the pain was more in the abdomen or the lower left chest. He complained a lot during his stay that he could not cough up anything but by the last hospital day, he said he was coughing up some brown material. His pain gradually improved. He felt much better by the time of discharge and did not require any analgesics and was obviously much more comfortable. He was treated with intravenous antibiotics. The noted CRP was 13. Overnight oximetry study was done the night before discharge on room air. He spent 7.1% of the recorded time with an O2 sat below 80%. On the morning of discharge on room air, his O2 sat was 83% to 85%. Home oxygen was arranged for him. The patient reacted negatively to my suggestion that he discussed sleep lab evaluation with Dr. Abel, but I think I would try to convince him that this would be to his benefit. FINAL DIAGNOSES: 1. Chronic obstructive pulmonary disease exacerbation. 2. Coronary artery disease. 3. Diabetes. 4. Hypertension. 5. Gastroesophageal reflux disease. 6. Obstructive sleep apnea. 7. Abdominal pain with finding of diverticulosis on CT scan. DISCHARGE MEDICATIONS: 1. Amoxicillin clavulanate 875 mg b.i.d. for five more days. 2. Acetaminophen 650 mg every 6 hours p.r.n. 3. Aspirin 81 mg daily. 4. Guaifenesin ER 1200 mg b.i.d. 5. Polyethylene glycol 17 g b.i.d. p.r.n. 6. Amlodipine-benazepril 10/20 one daily. 7. Spironolactone 50 mg daily. 8. Albuterol inhaler 2 puffs every 6 hours p.r.n. 9. Metformin 750 mg in the evening and 1500 mg h.s. 10. Omeprazole 20 mg daily. 11. Glipizide XL 5 mg daily. 12. Atorvastatin 80 mg daily. 13. Terazosin 5 mg h.s. 14. Metoprolol succinate 100 mg daily. [id number]/[facility] #: [id number] [facility]
[2017-01-30 10:12] VITALS: BP 199/94
== END 2017-01-30 11:30 | disposition home or self-care (01) | DRG 191 ==
LOC: ED 07:11 → MEDTELE 09:25 → OBSVTOIN 01-28 15:16 → MED 01-29 18:55
PROVIDERS: ADMIT Internal Medicine; ATTEND Internal Medicine
DX: J44.1 Chronic obstructive pulmonary disease with (acute) exacerbation (principal); N17.9 Acute kidney failure, unspecified; E11.51 Type 2 diabetes mellitus with diabetic peripheral angiopathy without gangrene; I11.0 Hypertensive heart disease with heart failure; I50.9 Heart failure, unspecified; Z88.8 Allergy status to other drugs, medicaments and biological substances; Z86.73 Personal history of transient ischemic attack (TIA), and cerebral infarction without residual deficits; Z95.2 Presence of prosthetic heart valve; Z95.5 Presence of coronary angioplasty implant and graft; Z95.1 Presence of aortocoronary bypass graft; Z82.49 Family history of ischemic heart disease and other diseases of the circulatory system; Z83.3 Family history of diabetes mellitus; I25.10 Atherosclerotic heart disease of native coronary artery without angina pectoris; K21.9 Gastro-esophageal reflux disease without esophagitis; E78.5 Hyperlipidemia, unspecified; G47.33 Obstructive sleep apnea (adult) (pediatric); K57.90 Diverticulosis of intestine, part unspecified, without perforation or abscess without bleeding; Z80.3 Family history of malignant neoplasm of breast; Z87.891 Personal history of nicotine dependence; Z99.81 Dependence on supplemental oxygen; Z79.82 Long term (current) use of aspirin; Z79.84 Long term (current) use of oral hypoglycemic drugs
CPT/HCPCS: 36415; 71010; 74177; 80048; 80053; 81003; 82550; 82553; 83036; 83605; 83690; 83735; 83880; 84443; 84484; 85025; 85379; 85610; 85730; 86140; 87040; 87070; 87205; 87899; 93005; 94640; 94760; 94762; A9270-GY; J1644; J2543; J2930; Q9967